=== PATIENT | female | born 1980 | race Caucasian/White ===

== ENCOUNTER → 2019-07-29 | Outpatient (CLI) | payer BC ==
[~2019-07-29] MED LIST: ADVIL200 MG PO; CLARITIN 1010 MG/TAB PO; MULTI VITAMINS1 TAB PO; MULTIVITAMIN FO1 CAP; PROBIOTIC-MAJOR PO
== END ==
LOC: COL.VAS 12:18
DX: M79.89 Other specified soft tissue disorders (principal)

== ENCOUNTER → 2020-11-20 | Outpatient (CLI) | payer BC | LOC: COL.RAD 09:12 | DX: S73.191A Other sprain of right hip, initial encounter (principal) | CPT/HCPCS: A9585; Q9967 ==

== ENCOUNTER → 2021-03-26 | Outpatient (CLI) | payer BC | LOC: MC.RAD 12:48 | DX: Z12.31 Encounter for screening mammogram for malignant neoplasm of breast (principal) ==